=== PATIENT | male | born 1990 | race Caucasian/White ===

== ENCOUNTER 2016-10-03 16:22 | Emergency (ER) | payer OTHER ==
[2016-10-03 16:29] VITALS: BP 120/87; PULSE 90; RESP 16; TEMP 97.7; O2SAT 96
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
== END 2016-10-03 17:00 | disposition home or self-care (01) ==
DX: M54.12 Radiculopathy, cervical region (principal); F17.200 Nicotine dependence, unspecified, uncomplicated

== ENCOUNTER 2016-10-08 16:20 | Emergency (ER) | payer OTHER ==
[2016-10-08 16:27] VITALS: TEMP 97.5
--- NOTE | 2016-10-08 17:48 | EDPHY ---
H & P Stated Complaint: neck/back pain/seen 10/03 is out of meds and not better/has appt for wednesday - Personal History Current Tetanus/Diphtheria Vaccine: Yes - Medical/Surgical History Hx Asthma: No Hx Chronic Respiratory Disease: No Hx Diabetes: No Hx Cardiac Disease: No Hx Renal Disease: No Hx Cirrhosis: No Hx Alcoholism: No Hx HIV/AIDS: No Hx Splenectomy or Spleen Trauma: No Other PMH: denies - Social History Smoking Status: Light smoker HPI/ROS: CHIEF COMPLAINT: Back pain HISTORY OF PRESENT ILLNESS: complains of 6 day history of left-sided neck and shoulder pain. This was gradual onset. Constant duration. Steadily worsening from mild to severe. Seen here on the discharged home with pain medication , steroid and instructions to follow up with Neurosurgery. He made an appointment on Wednesday for them to. However his pain continues to be intolerable to him. He is taking the prescriptions with minimal improvement. He does have pain that radiates into the arm. He has no numbness. No cyanosis or pallor. No trauma. No bony tenderness of the neck. No headache. No back pain lower the cervical region. He has no anesthesia of the saddle. No bowel or bladder incontinence. No weakness of the left arm. No other associated complaints or modifying factors REVIEW OF SYSTEMS: Ten systems reviewed and are negative unless otherwise noted in the HPI EXAMINATION General Appearance: Alert, no distress Head: normocephalic, atraumatic Eyes: Pupils equal and round, no conjunctival pallor or injection ENT, Mouth: Mucous membranes moist Neck: Normal inspection, supple, non-tender Respiratory: no respiratory distress Cardiovascular: Regular rate. pulses intact distally with 2/2 radial symmetrically. Brisk cap refill in all 10 fingers Gastrointestinal: no distention Back: tenderness to palpation of the left trapezius and left para spinal muscles of the cervical spine. There is no bony tenderness at any level. No step-off. No deformity or crepitus. Neurological: A&O, Sensation intact bilaterally. Strength is 5/5 in both arms. No focal deficits. Skin: Warm and dry, no rash Extremities: Nontender, no pedal edema. Range of motion is fully intact in both upper extremities. DIFFERENTIAL DIAGNOSES Including but not limited to: Cervical radiculopathy, trapezius strain, trapezius contusion, muscle spasm, nonspecific musculoskeletal pain MDM: left cervical muscular tenderness with possible radiculopathy and muscle spasm of the left trapezius. There is no midline tenderness of the neck. There is no bony tenderness of the level the back. There is no weakness. No indication for MRI at this time. He does have an appoint with the neurosurgeon on Wednesday that he will keep. Discharged home with medications as prescribed and follow up with him accordingly. ER precautions are discussed. SUPERVISION: This patient was independently evaluated without the aide of supervising physician. (Ulysses Ayala) Constitutional: Initial Vital Signs Temperature (C) 36.4 C 10/08/16 16:25 Heart Rate 76 10/08/16 16:25 Respiratory Rate 16 10/08/16 16:25 Blood Pressure 145/85 H 10/08/16 16:25 O2 Sat (%) 99 10/08/16 16:25 O2 Delivery Mode Room Air Allergies/Adverse Reactions: No Known Allergies Allergy (Verified 10/08/16 16:24) Home Medications: Medication Instructions Recorded HYDROcodone/APAP 10/325 [[place] 1 - 2 each PO Q4-6PRN PRN #20 tab 10/03/16 10/325] predniSONE 40 mg PO DAILY #10 tab 10/03/16 Cyclobenzaprine [Flexeril 10 MG 10 mg PO TID PRN #15 tab 10/08/16 (*)] oxyCODONE HCL/ACETAMINOPHEN 1 each PO Q4-6PRN PRN #20 tablet 10/08/16 [Percocet 5-325 mg Tablet] Medical Decision Making Other Provider: The patient wasevaluatedand managed by themnelevel provider. My co- signature indicates that tadeo reviewed this chart and I agree with the findings and plan of care asdocumented. I am the secondary supervising physician. (Caroline Asher) Departure - Departure Disposition: Home, Routine, Self-Care Clinical Impression: Muscle spasm, Cervical radiculopathy Condition: Good Instructions: Muscle Spasm (ED), Cervical Radiculopathy (ED) Additional Instructions: Follow up with neurosurgeon as scheduled on Wednesday. Emergency department course is for weakness, numbness or midline bony tenderness of the neck. Referrals: NONE *PRIMARY CARE P,. [Primary Care Provider] - As per Instructions Prescriptions: Cyclobenzaprine [Flexeril 10 MG (*)] 10 mg PO TID PRN #15 tab PRN Reason: Spasms oxyCODONE HCL/ACETAMINOPHEN [Percocet 5-325 mg Tablet] 1 each PO Q4-6PRN PRN # 20 tablet PRN Reason: Pain, Moderate
[2016-10-08 18:09] VITALS: BP 130/78; PULSE 75; RESP 18; O2SAT 96
== END 2016-10-08 18:09 | disposition home or self-care (01) ==
DX: M54.12 Radiculopathy, cervical region (principal); M62.838 Other muscle spasm; F17.200 Nicotine dependence, unspecified, uncomplicated

== ENCOUNTER → 2016-10-13 | Outpatient (CLI) | payer OTHER ==
--- NOTE | 2016-10-13 18:14 | DX ---
Left Shoulder , 3 Views History: Chronic pain, progressive, without trauma Findings: The humeral head is well rounded and normally located. No fracture deformity or malalignmen t is identified. Overall mineralization is normal. There is no soft tissue calcification or ossificat ion. The AC joint looks normal. Impression: Negative. If symptoms persists, despite a period of conservative therapy, then consider [facility] MRI for further evaluation.
== END ==
LOC: BMCIMAGING 15:10
PROVIDERS: ATTEND Neurological Surgery
DX: M25.512 Pain in left shoulder (principal)

== ENCOUNTER → 2016-10-29 | Outpatient (CLI) | payer OTHER ==
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
== END ==
LOC: BMCIMAGING 11:45
PROVIDERS: ATTEND Physician Assistant
DX: M54.2 Cervicalgia (principal)

== ENCOUNTER 2016-11-18 01:36 | Emergency (ER) | payer OTHER ==
[2016-11-18 01:41] VITALS: TEMP 97.3
--- NOTE | 2016-11-18 01:46 | EDPHY ---
H & P Stated Complaint: Anxious HPI/ROS: HPI CHIEF COMPLAINT: Anxious HISTORY OF PRESENT ILLNESS: This patient is a very pleasant 26-year-old male, presents emergency room feeling very anxious. He states that just started taking Lexapro as of 2 days ago for anxiety no history of depression no history of want to harm himself or anybody else, however states that he has taken 2 doses of Lexapro and tells me his anxiety has increased. He has never been on anxiety medication he denies ever taking Ativan, Xanax Valium. Upon arrival to the emergency room he does appear anxious, he tells me he cannot sleep because he has racing thoughts. Is not seeing or hearing anything does not want to harm self or anybody else. Tells me he has a lot of stress in his life and this is increasing his anxiety. Past Medical History: Anxiety Past Surgical History: Denies any significant surgical history Social History: Denies daily use of drugs, or alcohol but does smoke tobacco Family History: Noncontributory ROS REVIEW OF SYSTEMS: A comprehensive 10 point review of systems is otherwise negative aside from elements mentioned in the history of present illness. Exam Constitutional anxious appearing, triage nursing summary reviewed, vital signs reviewed, awake/alert. Eyes normal conjunctivae and sclera, EOMI, PERRLA. HENT normal inspection, atraumatic, moist mucus membranes, no epistaxis, neck supple/ no meningismus, no raccoon eyes. Respiratory clear to auscultation bilaterally, normal breath sounds, no respiratory distress, no wheezing. Cardiovascular rate normal, regular rhythm, no murmur, no edema, distal pulses normal. Gastrointestinal soft, non-tender, no rebound, no guarding, normal bowel sounds, no distension, no pulsatile mass. Genitourinary no CVA tenderness. Musculoskeletal no midline vertebral tenderness, full range of motion, no calf swelling, no tenderness of extremities, no meningismus, good pulses, neurovascularly intact. Skin pink, warm, & dry, no rash, skin atraumatic. Neurologic awake, alert and oriented x 3, AAOx3, moves all 4 extremities equally, motor intact, sensory intact, CN II-XII intact, normal cerebellar, normal vision, normal speech. Psychiatric calm and cooperative, anxious Heme/Lymph/Immune no lymphadenopathy. Differential Diagnosis: Includes but is not limited to in a particular order acute anxiety attack, panic attack, underlying anxiety, depression Medical Decision Making: Patient be given 1 mg p.o. Ativan and will re- evaluate him. Re-evaluation: 040: re-evaluation at this time patient is feeling much better. States his anxiety is greatly improved. He is resting comfortably he is requesting be discharged home. He understands I will give him a very limited supply of Ativan. He should follow up with his primary care doctor about his anxiety and possibly changing his Lexapro. Source: Patient - Personal History Current Tetanus/Diphtheria Vaccine: Yes Current Tetanus Diphtheria and Acellular Pertussis (TDAP): Yes - Medical/Surgical History Hx Asthma: No Hx Chronic Respiratory Disease: No Hx Diabetes: No Hx Cardiac Disease: No Hx Renal Disease: No Hx Cirrhosis: No Hx Alcoholism: No Hx HIV/AIDS: No Hx Splenectomy or Spleen Trauma: No Other PMH: denies - Social History Smoking Status: Light smoker Constitutional: Initial Vital Signs Temperature (C) 36.3 C 11/18/16 01:39 Heart Rate 102 H 11/18/16 01:39 Respiratory Rate 18 11/18/16 01:39 Blood Pressure 161/92 H 11/18/16 01:39 O2 Sat (%) 100 11/18/16 01:39 O2 Delivery Mode Room Air Allergies/Adverse Reactions: No Known Allergies Allergy (Verified 11/18/16 01:38) Home Medications: Medication Instructions Recorded Lexapro 11/18/16 Lorazepam [Ativan] 1 mg PO DAILY #5 tablet 11/18/16 Medical Decision Making - Data Points Medications Given: Discontinued Medications Diphenhydramine HCl (Benadryl) 50 mg PO EDNOW ONE Stop: 11/18/16 02:53 Last Admin: 11/18/16 02:55 Dose: 50 mg Diphenhydramine HCl (Benadryl) 50 mg PO EDNOW ONE Stop: 11/18/16 02:53 Last Admin: 11/18/16 02:55 Dose: Not Given Lorazepam (Ativan) 1 mg PO ONCE ONE Stop: 11/18/16 01:55 Last Admin: 11/18/16 02:00 Dose: 1 mg Departure - Departure Disposition: Home, Routine, Self-Care Clinical Impression: Anxiety Condition: Good Instructions: Anxiety (ED) Additional Instructions: 1. Stay well-hydrated drink lots of fluids 2. Please follow up with your primary care doctor about anxiety 3. Return to the emergency room if you have any worsening symptoms questions or concerns 4. I have given you very limited supply of anxiety medicine. Referrals: Sofie Ireland PA [Primary Care Provider] - As per Instructions Prescriptions: Lorazepam [Ativan] 1 mg PO DAILY #5 tablet
[2016-11-18] MEDS ORDERED: LORazepam 1 MG TAB PO ONE (01:54)
[2016-11-18] MEDS ORDERED: diphenhydrAMINE 25 MG CAP PO ONE ×2 (02:52)
[2016-11-18 04:26] VITALS: BP 132/84; PULSE 88; RESP 14; O2SAT 96
== END 2016-11-18 04:26 | disposition home or self-care (01) ==
DX: F41.9 Anxiety disorder, unspecified (principal); F17.200 Nicotine dependence, unspecified, uncomplicated

== ENCOUNTER 2017-05-24 12:38 | Emergency (ER) | payer SELFPAY ==
--- NOTE | 2017-05-24 12:47 | EDPHY ---
H & P Stated Complaint: Sore throat this morning Time Seen by Provider: 05/24/17 12:47 - Personal History Current Tetanus Diphtheria and Acellular Pertussis (TDAP): Yes - Medical/Surgical History Hx Asthma: No Hx Chronic Respiratory Disease: No Hx Diabetes: No Hx Cardiac Disease: No Hx Renal Disease: No Hx Cirrhosis: No Hx Alcoholism: No Hx HIV/AIDS: No Hx Splenectomy or Spleen Trauma: No Other PMH: chronic neck/back pain - Social History Smoking Status: Current every day smoker Constitutional: Initial Vital Signs Temperature (C) 36.9 C 05/24/17 12:42 Heart Rate 90 05/24/17 12:42 Respiratory Rate 18 05/24/17 12:42 Blood Pressure 121/75 H 05/24/17 12:42 O2 Sat (%) 96 05/24/17 12:42 O2 Delivery Mode Room Air Allergies/Adverse Reactions: No Known Allergies Allergy (Verified 05/24/17 12:42) Home Medications: Medication Instructions Recorded Cephalexin [Keflex (RX)] 500 mg PO TID #30 cap 05/24/17 Hydrocodone/APAP 5/325 [[place] 1 - 2 each PO Q4-6PRN PRN #10 tab 05/24/17 5/325] Ibuprofen [Motrin] 800 mg PO Q8 #20 tab 05/24/17 predniSONE 60 mg PO DAILY #3 tab 05/24/17 Medical Decision Making ED Course/Re-evaluation: CHIEF COMPLAINT: Sore throat HISTORY OF PRESENT ILLNESS: The patient is a 27 y/o male who complains of a mild sore throat for one day. The pain is exacerbated while drinking, yawning, or swallowing. He has not taken anything to alleviate his symptoms. Denies fever , difficulty swallowing, vomiting, difficulty breathing, or other pertinent symptoms. He is otherwise healthy. REVIEW OF SYSTEMS: A 10 point review of systems was performed and is negative with the exception of the elements mentioned in the history of present illness. PHYSICAL EXAM: HR, BP, O2 Sat, RR. Temp noted General Appearance: Alert, well hydrated, appropriate, and non-toxic appearing. Head: Atraumatic without scalp tenderness or obvious injury Eyes: Pupils equal, round, reactive to light and accommodation, EOMI, no trauma , no injection. Nose: Atraumatic, no rhinorrhea, clear. Throat: Mild pharyngeal erythema, left peritonsillar exudate, no edema, mucus membranes moist. Neck: Supple, nontender, no lymphadenopathy. Respiratory: No retractions, no distress, no wheezes, and no accessory muscle use. Lungs are clear to auscultation bilaterally. Cardiovascular: Regular rate and rhythm, no murmurs, rubs, or gallops. Good capillary refill all extremities. Gastrointestinal: Abdomen is soft, nontender, non-distended, no masses, no rebound, no guarding, no peritoneal signs. Musculoskeletal: Normal active ROM of all extremities, atraumatic. Neurological: Alert, appropriate, and interactive. Non-focal neuro. Skin: No rashes, good turgor, no nodules on palpation. Past medical history: Denies Past surgical history: Denies Family history: Denies Social history: Smoker, lives in [place], works at [employer]. DIFFERENTIAL DIAGNOSIS: The differential diagnosis for the patient's sore throat included but was not limited to pharyngitis, pneumonia, urinary tract infection, viral syndrome, meningitis, and sepsis. MEDICAL DECISION MAKING: The patient is a healthy 27 y/o male who presents with an uncomplicated sore throat since this morning. On exam there is pharyngeal erythema and left peritonsillar exudate. Plan to treat with Keflex, [place], ibuprofen, and Prednisone. Reassessed patient and provided return precautions; patient is comfortable with this plan. Departure - Departure Disposition: Home, Routine, Self-Care Clinical Impression: Pharyngitis Qualifiers: Pharyngitis/tonsillitis etiology: unspecified etiology Qualified Code(s): J02.9 - Acute pharyngitis, unspecified Condition: Good Instructions: Pharyngitis (ED), Cephalexin (By mouth), Hydrocodone/ Acetaminophen (By mouth), Prednisone (By mouth) Additional Instructions: 1. Take 800 mg of ibuprofen every 8 hours as needed for pain for the next 3-5 days. 2. Take [place] as prescribed for severe pain, not controlled by ibuprofen. 3. Take Keflex as prescribed, make sure to complete the entire prescription without fail, even if you have improved symptoms. 4. Take Prednisone as prescribed. 5. Follow up with your primary care provider for unimproved symptoms in the next 3-5 days. 6. Return to the ED for inability to swallow, shortness of breath, chest pain, or dramatic worsening of symptoms. Referrals: NONE *PRIMARY CARE P,. [Primary Care Provider] - As per Instructions Sherrie Hwang DO [Doctor of Osteopathy] - As per Instructions Report Scribed for: Zain Hooker Report Scribed by: Marissa Mcdonald Date of Report: 05/24/17 Time of Report: 12:54
[2017-05-24 13:27] VITALS: BP 123/77; PULSE 65; RESP 16; TEMP 98.1; O2SAT 98
== END 2017-05-24 13:27 | disposition home or self-care (01) ==
DX: J02.9 Acute pharyngitis, unspecified (principal); F17.200 Nicotine dependence, unspecified, uncomplicated

== ENCOUNTER 2017-06-05 22:28 | Emergency (ER) | payer SELFPAY ==
--- NOTE | 2017-06-05 22:30 | EDPHY ---
H & P HPI/ROS: HPI The patient presents with alcohol intoxication brought in by ambulance. Apparently, he was found lying on a bench in the [facility] with intoxication and vomiting. He admits to marijuana and alcohol use but is concerned he may be drug because he does not remember all the events of the evening. The patient tells me that he was playing video games at his house, walked to his place of work and then went to a dispensary. He thinks he may have drinks some alcohol, and then remembers awaking on a bench with the paramedics at his side. REVIEW OF SYSTEMS Constitutional: No fever, no chills. Eyes: No discharge. ENT: No sore throat. Cardiovascular: No chest pain, no palpitations. Respiratory: No cough, no shortness of breath. Gastrointestinal: No abdominal pain, no vomiting. Genitourinary: No hematuria. Musculoskeletal: No back pain. Skin: No rashes. Neurological: No headache. PMHx: Depression Soc Hx: Alcohol use, marijuana use, works at [employer] PHYSICAL General Appearance: Alert, no distress Eyes: Pupils equal and round no pallor or injection ENT, Mouth: Mucous membranes moist Respiratory: There are no retractions, lungs are clear to auscultation Cardiovascular: Regular rate and rhythm Gastrointestinal: Abdomen is soft and non-tender, no masses, bowel sounds normal Neurological: A&O, moves all extremities Skin: Warm and dry, no rashes Musculoskeletal: Neck is supple non tender Extremities: symmetrical, full range of motion Psychiatric: Patient is oriented X 3, there is no agitation Source: Patient, EMS Exam Limitations: Intoxication Constitutional: Initial Vital Signs Temperature (C) 36.8 C 06/05/17 22:28 Heart Rate 99 06/05/17 22:28 Respiratory Rate 16 06/05/17 22:28 Blood Pressure 116/75 06/05/17 22:28 O2 Sat (%) 97 06/05/17 22:28 O2 Delivery Mode Room Air Allergies/Adverse Reactions: No Known Allergies Allergy (Verified 05/24/17 12:42) Home Medications: Medication Instructions Recorded NK [No Known Home Meds] 06/05/17 Medical Decision Making Differential Diagnosis: This is a 27-year-old male who presents with episode of altered mental status, now appears to be resolved, brought in by ambulance after being found seemingly intoxicated on a park bench vomiting. Differential diagnosis includes alcohol intoxication, marijuana intoxication, polysubstance abuse. In the emergency department, the patient was monitored, he continued to feel better. He became clinically sober. He was able to tolerate fluids without difficulty. Blood alcohol level was elevated which likely explains his symptoms. He will be discharged home. - Data Points Laboratory Results: 06/05/17 22:45 Ethyl Alcohol 148 mg/dL H mg/dL (0-10) Departure - Departure Disposition: Home, Routine, Self-Care Clinical Impression: Alcoholic intoxication Qualifiers: Complication of substance-induced condition: with delirium Qualified Code(s): F10.921 - Alcohol use, unspecified with intoxication delirium Condition: Good Instructions: Alcohol Intoxication (ED) Referrals: [facility] [Outside] - As per Instructions
[2017-06-05 22:47] VITALS: RESP 16; TEMP 98.2
[2017-06-05 23:06] LABS: ETHANOL SERUM 148 mg/dL (0-10)
[2017-06-05 23:34] VITALS: BP 118/74; PULSE 84; O2SAT 95
== END 2017-06-05 23:51 | disposition home or self-care (01) ==
LOC: EDUNIT#
DX: F10.921 Alcohol use, unspecified with intoxication delirium (principal)
CPT/HCPCS: G0480